=== PATIENT | male | born 1965 | race Caucasian/White ===

== ENCOUNTER 2023-09-11 12:46 | Outpatient (CLI) | payer OTHER, SELFPAY ==
--- NOTE | ~2023-09-11 | US_ITS ---
EXAMINATION: US scrotum doppler DATE: 09/11/2023 13:09 INDICATION: One week of nontraumatic right scrotal mass/swelling and pain TECHNIQUE: Testicular sonogram utilizing grayscale and Doppler COMPARISON: None. FINDINGS: The right testis measures 4.2 x 3.7 x 3.4 cm. The left testis measures 4.7 x 3.2 x 2.6 cm. Symmetric normal grayscale appearance to both testes. There is tubular ectasia of the rete testes at the right testicular hilum. There is normal vascular flow to both testes. Along side the right testis is a prom inent multiloculated anechoic fluid collection. The largest loculation measures up to 5.7 cm in maxim al diameter. This could represent either a complex septated large right hydrocele or collection of la rge epididymal head cysts. The right epididymis is otherwise normal with normal vascular flow. The le ft epididymis is normal with normal vascular flow. There is no varicocele or left-sided hydrocele. IMPRESSION: 1. Several loculated anechoic fluid collections in the right scrotum which could represent a complex septated hydrocele or more likely several large epididymal head cysts or spermatoceles in this patie nt post reported with chronic prior vasectomy. 2. Normal bilateral testes. Reviewed, dictated and finalized at location A. IMPRESSION: 1. Several loculated anechoic fluid collections in the right scrotum which cou ld represent a complex septated hydrocele or more likely several large epididym al head cysts or spermatoceles in this patient post reported with chronic prior vasectomy. 2. Normal bilateral testes.
== END 2023-09-11 12:47 ==
LOC: GOSHIMG 12:49
PROVIDERS: PCP Family Medicine; Visit Provider Family Medicine
DX: N50.89 Other specified disorders of the male genital organs (principal)
CPT/HCPCS: 76870; 93976